=== PATIENT | female | born 1975 | race Caucasian/White ===

== ENCOUNTER → 2020-09-24 | Outpatient (CLI) | payer BC, OTHER ==
[~2020-09-24] MED LIST: CLARITIN10 MG PO
== END ==
LOC: KOH-I 10:00
DX: R10.11 Right upper quadrant pain (principal); N28.9 Disorder of kidney and ureter, unspecified
CPT/HCPCS: 76705

== ENCOUNTER → 2020-09-28 | Outpatient (CLI) | payer BC, OTHER | LOC: KOH-I 08:23 | DX: R10.9 Unspecified abdominal pain (principal); K38.9 Disease of appendix, unspecified; Q44.6 Cystic disease of liver; Q61.3 Polycystic kidney, unspecified; J98.4 Other disorders of lung | CPT/HCPCS: 74176 ==

== ENCOUNTER → 2020-11-25 | Outpatient (CLI) | payer BC, OTHER | LOC: NM 08:40 | DX: R10.11 Right upper quadrant pain (principal) | CPT/HCPCS: 78226; A9537 ==

== ENCOUNTER → 2021-04-12 | Outpatient (CLI) | payer BC | LOC: KOH-I 11:27 | DX: R07.81 Pleurodynia (principal) | CPT/HCPCS: 71046 ==